=== PATIENT | female | born 1975 | race Native Hawaiian/Other Pacific Islander ===

== ENCOUNTER 2017-10-30 03:26 | Emergency (ER) | payer BC ==
[~2017-10-30] VITALS: Ht 157.5 cm; Wt 83.9 kg
[2017-10-30 04:12] LABS: PLATELET COUNT 304 K/uL (152-353)
[2017-10-30 04:19] LABS: POTASSIUM 3.1 mmol/L (3.6-5.2)
[2017-10-30 07:35] VITALS: BP 128/72; TEMP 98
== END 2017-10-30 07:35 | disposition home or self-care (01) ==
LOC: ED 03:26
DX: R10.11 Right upper quadrant pain (principal); K57.90 Diverticulosis of intestine, part unspecified, without perforation or abscess without bleeding
CPT/HCPCS: 36415; 80053; 82150; 83690; 85027; 96374; 99284; J2405; Q9963

== ENCOUNTER 2017-12-27 16:22 | Outpatient (CLI) | payer BC | END 2017-12-27 22:04 | disposition home or self-care (01) | LOC: RAD 16:22 | DX: R06.02 Shortness of breath (principal) ==

== ENCOUNTER 2022-04-01 09:07 | Outpatient (CLI) | payer BC | END 2022-04-01 20:39 | disposition home or self-care (01) | LOC: US 09:07 | PROVIDERS: ATTEND Nurse Practitioner Family | DX: E88.09 Other disorders of plasma-protein metabolism, not elsewhere classified (principal) ==

== ENCOUNTER 2023-03-12 11:07 | Outpatient (CLI) | payer BC | END 2023-03-12 19:51 | disposition home or self-care (01) | LOC: RESP 11:07 | PROVIDERS: ATTEND Nurse Practitioner Family | DX: R00.0 Tachycardia, unspecified (principal) | CPT/HCPCS: 93005; 93225 ==